=== PATIENT | female | born 1935 | race Two or more races ===

== ENCOUNTER 2021-10-22 22:33 | Inpatient (IN) | payer MEDICAID, OTHER ==
[~2021-10-22] VITALS: Ht 165.1 cm; Wt 51.5 kg
[2021-10-22] MEDS ORDERED: ONDANSETRON HCL 4 MG/2 ML VIAL IV ONE (23:30)
[2021-10-22] MEDS ORDERED: SODIUM CHLORIDE 0.9% 500 ML IVB ONE (23:30)
[2021-10-22] MEDS ORDERED: MORPHINE SULFATE 4 MG/ML SYR/VIAL IV ONE (23:30)
[2021-10-23 01:21] LABS: Basophils # (auto) 0 10 ^3/uL (0-0.2); Basophils % (auto) 0.5 % (0.0-2.0); Eosinophils # (auto) 0 10 ^3/uL (0-0.8); Eosinophils % (auto) 0.3 % (0.0-7.0); Hematocrit 40.9 % (36.0-46.0); Lymphocytes % (auto) 14.9 % (10.0-50.0); Mean Corpuscular Hemoglobin 31.6 pg (28.0-32.0); Mean Corpuscular Hgb Conc. 34.3 g/dL (32.0-36.0); Mean Corpuscular Volume 92.1 fL (80.0-100.0); Monocytes # (auto) 0.4 10 ^3/uL (0-1.3); Monocytes % (auto) 5.1 % (0.0-12.0); Neutrophils # (auto) 5.4 10 ^3/uL (1.6-8.6); Neutrophils % (auto) 79.2 % (37.0-80.0); Red Blood Cells 4.44 10^6/uL (4.0-5.20); Red Cell Distribution Width 12.6 % (11.8-14.3); White Blood Cell 6.9 10^3/uL (4.4-10.8)
[2021-10-23 01:30] LABS: INR 1.04 (0.9-1.15); Partial Thromboplastin Time 28.2 sec (23.6-33.0)
[2021-10-23 01:33] LABS: Potassium 3.8 mmol/L (3.5-5.1)
[2021-10-23 01:37] LABS: Albumin 3.6 g/dL (3.4-5.0); BUN/Creatinine Ratio 14.6; Magnesium 2.4 mg/dL (1.6-2.6)
[2021-10-23 01:39] LABS: Bilirubin, Total 0.5 mg/dL (0.2-1.0); Total Protein 7.5 g/dL (6.4-8.2)
[2021-10-23] MEDS ORDERED: ONDANSETRON HCL 4 MG/2 ML VIAL IV PRN (03:15)
[2021-10-23] MEDS ORDERED: SODIUM CHLORIDE 0.9% 1,000 ML IV SCH (03:15)
[2021-10-23] MEDS ORDERED: MORPHINE SULFATE 4 MG/ML SYR/VIAL IV PRN (03:15)
[2021-10-23] MEDS ORDERED: MORPHINE SULFATE INJECTION 2 MG/ML SYRG IV PRN (09:00)
[2021-10-23] MEDS ORDERED: PANTOPRAZOLE 40 MG/10 ML VIAL INJ IV SCH (10:00)
[2021-10-23] MEDS: D5W/SOD CHLO 0.9% 1,000 ML IV SCH (14:30)
[2021-10-23 21:58] VITALS: BP 126/59
[2021-10-24] MEDS: D5W/SOD CHLO 0.9% 1,000 ML IV SCH ×3 (03:35→18:04)
[2021-10-24 07:06] LABS: Basophils # (auto) 0 10 ^3/uL (0-0.2); Basophils % (auto) 0.3 % (0.0-2.0); Eosinophils # (auto) 0 10 ^3/uL (0-0.8); Eosinophils % (auto) 0.9 % (0.0-7.0); Hematocrit 39.4 % (36.0-46.0); Lymphocytes # (auto) 1.2 10 ^3/uL (0.4-5.4); Lymphocytes % (auto) 27.7 % (10.0-50.0); Mean Corpuscular Hemoglobin 30.9 pg (28.0-32.0); Mean Corpuscular Hgb Conc. 33.1 g/dL (32.0-36.0); Mean Corpuscular Volume 93.4 fL (80.0-100.0); Monocytes # (auto) 0.5 10 ^3/uL (0-1.3); Neutrophils # (auto) 2.5 10 ^3/uL (1.6-8.6); Neutrophils % (auto) 60.1 % (37.0-80.0); Red Blood Cells 4.22 10^6/uL (4.0-5.20); Red Cell Distribution Width 12.7 % (11.8-14.3); White Blood Cell 4.2 10^3/uL (4.4-10.8)
[2021-10-24 07:44] LABS: Albumin 3.2 g/dL (3.4-5.0); Calcium 9.2 mg/dL (8.5-10.1); Potassium 3.8 mmol/L (3.5-5.1)
[2021-10-24 07:49] LABS: BUN/Creatinine Ratio 10.8; Bilirubin, Total 0.5 mg/dL (0.2-1.0); Total Protein 6.5 g/dL (6.4-8.2)
[2021-10-24 09:00] VITALS: BP 129/63
[2021-10-24 13:00] VITALS: BP 146/59
[2021-10-24] MEDS ORDERED: LIDOCAINE W/ EPINEPHRINE 1% 20ML VIAL ONE (13:56)
[2021-10-24] MEDS ORDERED: ceFAZolin 1GM/50ML 50 ML IV ONE (13:59)
[2021-10-24] MEDS ORDERED: fentaNYL CITRATE 5 ML ONE (14:05)
[2021-10-24] MEDS ORDERED: fentaNYL CITRATE 100 MCG/2 ML VL ONE (14:05)
[2021-10-24] MEDS ORDERED: GLYCOPYRROLATE 0.2 MG/ML 1ML VIAL ONE (14:05)
[2021-10-24] MEDS ORDERED: NEOSTIGMINE 1 MG/ML INJ (10mg/10ML VIAL) ONE (14:05)
[2021-10-24] MEDS ORDERED: ONDANSETRON HCL 4 MG/2 ML VIAL ONE (14:05)
[2021-10-24] MEDS ORDERED: ROCURONIUM 10MG/ML 10ML VIAL IV ONE (14:05)
[2021-10-24] MEDS ORDERED: DexAMETHasone SOD PHOS 10MG/1ML VIAL INJ ONE (14:05)
[2021-10-24] MEDS ORDERED: ETOMIDATE (2MG/ML) 20ML VIAL IV ONE (14:05)
[2021-10-24] MEDS ORDERED: HYDROmorphone HCL 2 MG/ML VL IV PRN (15:45)
[2021-10-24 17:00] VITALS: BP 114/67
[2021-10-24 23:02] VITALS: BP 121/50
[2021-10-25 04:39] VITALS: BP 128/50
[2021-10-25 08:30] VITALS: BP 127/48
[2021-10-25] MEDS: PANTOPRAZOLE 40 MG/10 ML VIAL INJ IV SCH (10:45)
[2021-10-25 18:00] VITALS: BP 136/70
[2021-10-25] MEDS: D5W/SOD CHLO 0.9% 1,000 ML IV SCH (19:35)
[2021-10-25 22:00] VITALS: BP 130/54
[2021-10-26 05:00] VITALS: BP 159/70
[2021-10-26 08:13] LABS: Basophils # (auto) 0 10 ^3/uL (0-0.2); Basophils % (auto) 0.2 % (0.0-2.0); Eosinophils # (auto) 0 10 ^3/uL (0-0.8); Eosinophils % (auto) 0.9 % (0.0-7.0); Hematocrit 42.9 % (36.0-46.0); Hemoglobin 14.5 g/dL (12.2-16.2); Lymphocytes # (auto) 1.2 10 ^3/uL (0.4-5.4); Lymphocytes % (auto) 24.4 % (10.0-50.0); Mean Corpuscular Hgb Conc. 33.9 g/dL (32.0-36.0); Mean Corpuscular Volume 91.7 fL (80.0-100.0); Monocytes # (auto) 0.5 10 ^3/uL (0-1.3); Monocytes % (auto) 9.8 % (0.0-12.0); Neutrophils # (auto) 3.2 10 ^3/uL (1.6-8.6); Neutrophils % (auto) 64.7 % (37.0-80.0); Nucleated Red Blood Cells % 0.4 %; Red Blood Cells 4.68 10^6/uL (4.0-5.20); Red Cell Distribution Width 12.7 % (11.8-14.3)
[2021-10-26 08:28] LABS: Potassium 3.1 mmol/L (3.5-5.1)
[2021-10-26 08:30] VITALS: BP 132/57
[2021-10-26 08:33] LABS: BUN/Creatinine Ratio 15.9; Calcium 9.4 mg/dL (8.5-10.1)
[2021-10-26] MEDS: PANTOPRAZOLE 40 MG/10 ML VIAL INJ IV SCH (10:29)
[2021-10-26] MEDS: D5W/SOD CHLO 0.9% 1,000 ML IV SCH (10:29)
[2021-10-26 12:12] VITALS: BP 138/55
[2021-10-26] MEDS: D5W/SOD CHL 0.9%/KCL 40MEQ 1,000 ML IV SCH (18:25)
[2021-10-26] MEDS: POTASSIUM CHL 20MEQ/50ML 50 ML IV SCH ×2 (18:25→22:49)
[2021-10-26 22:00] VITALS: BP 141/70
[2021-10-27 05:00] VITALS: BP 141/72
[2021-10-27] MEDS: D5W/SOD CHL 0.9%/KCL 40MEQ 1,000 ML IV SCH ×2 (06:04→22:59)
[2021-10-27 09:01] VITALS: BP 129/62
[2021-10-27] MEDS: PANTOPRAZOLE 40 MG/10 ML VIAL INJ IV SCH (11:06)
[2021-10-27 12:57] VITALS: BP 133/59
[2021-10-27] MEDS ORDERED: LACTULOSE 20Gm/30ML SOLN PO ONE (13:15)
[2021-10-27] MEDS ORDERED: traMADol HCL 50 MG TAB PO PRN (13:15)
[2021-10-27] MEDS ORDERED: MORPHINE SULFATE INJECTION 2 MG/ML SYRG IV PRN (13:15)
[2021-10-27 14:20] VITALS: BP 145/71
[2021-10-27 22:00] VITALS: BP 149/74
[2021-10-27] MEDS: LACTULOSE 20Gm/30ML SOLN PO SCH (23:00)
[2021-10-28 05:00] VITALS: BP 131/75
[2021-10-28 08:23] LABS: BUN/Creatinine Ratio 7.7; Calcium 9.5 mg/dL (8.5-10.1); Potassium 3.2 mmol/L (3.5-5.1)
[2021-10-28] MEDS: D5W/SOD CHL 0.9%/KCL 40MEQ 1,000 ML IV SCH (08:30)
[2021-10-28 09:00] VITALS: BP_SYST 107; BP_SYST 152; BP_DIAS 58; BP_DIAS 77
[2021-10-28] MEDS: LACTULOSE 20Gm/30ML SOLN PO SCH (09:45)
[2021-10-28] MEDS: PANTOPRAZOLE 40 MG/10 ML VIAL INJ IV SCH (09:46)
[2021-10-28] MEDS ORDERED: POTASSIUM CHL 20 Meq TABLET PO ONE (11:45)
[2021-10-28 14:12] VITALS: BP 152/77
== END 2021-10-28 16:20 | disposition home or self-care (01) | DRG 227 ==
LOC: EDBD 22:33 → ER 22:36 → EDBD 10-23 03:14 → OVERFLOW 10-23 03:14 → WEST WING 10-23 08:50
PROVIDERS: ADMIT Nurse Practitioner; ATTEND Internal Medicine
PROC: 0WQF0ZZ Repair Abdominal Wall, Open Approach (ICD-10-PCS; principal; 2021-10-24 14:10)
DX: K43.6 Other and unspecified ventral hernia with obstruction, without gangrene (principal); E87.6 Hypokalemia; I10 Essential (primary) hypertension; K59.00 Constipation, unspecified; R73.9 Hyperglycemia, unspecified; Z20.822 Contact with and (suspected) exposure to COVID-19
CPT/HCPCS: 36415; 71045; 74176; 80048; 80053; 82150; 83036; 83605; 83690; 83735; 85025; 85610; 85730; 86850; 86900; 86901; 87426; 88302; 96361; 96374; 96375; 97110; 97116; 97163; 97530; C9113; G0378; J0690; J1100; J2405; J7042

== ENCOUNTER 2024-06-03 19:13 | Emergency (ER) | payer MEDICAID ==
[~2024-06-03] VITALS: Ht 154.9 cm; Wt 55.1 kg
[2024-06-03] MEDS: traMADol HCL 50 MG TAB PO ONE (20:41)
[2024-06-03 20:42] VITALS: BP 154/70; PULSE 68; RESP 17; TEMP 98.6; O2SAT 97
== END 2024-06-03 20:52 | disposition home or self-care (01) ==
LOC: ER 19:13
DX: S52.502D Unspecified fracture of the lower end of left radius, subsequent encounter for closed fracture with routine healing (principal); M25.532 Pain in left wrist; I10 Essential (primary) hypertension; X58.XXXD Exposure to other specified factors, subsequent encounter
CPT/HCPCS: 73110